=== PATIENT | male | born 1955 | race Caucasian/White ===

== ENCOUNTER 2018-08-13 18:27 | Inpatient (IN) ==
[2018-08-13] MEDS ORDERED: DAPTOmycin 500 MG VIAL IVPB SCH (20:00)
[2018-08-14 06:47] LABS: INR 1.2
[2018-08-14] MEDS: Diltiazem CD (24hr) 180 MG CAPSULE PO SCH (10:14)
[2018-08-14] MEDS: Sennosides/Docusate Sodium TABLET PO SCH (10:15)
--- NOTE | 2018-08-14 12:36 | Internal Med History&Physical ---
Date of Encounter: 08/14/18 Time of Encounter: 11:50 Assessment and Plan (1) MRSA bacteremia Current visit: No Status: Acute Continue IV daptomycin through 08/30/2018. Lactobacillus will be added. (2) Hypokalemia Current visit: No Status: Acute Potassium level was 3.3 yesterday. Supplemental potassium will be started and labs be monitored. (3) Hypomagnesemia Current visit: No Status: Acute Check magnesium level in a.m. (4) HTN (hypertension) Current visit: No Status: Chronic Continue diltiazem, lisinopril, and Lopressor. Qualifiers: Hypertension type: essential hypertension Qualified Code(s): I10 - Essential (primary) hypertension (5) Paroxysmal A-fib Current visit: No Status: Chronic Continue metoprolol, diltiazem, and Coumadin. (6) SHRUTI (acute kidney injury) Current visit: No Status: Acute Improving. Monitor renal indices. (7) Anemia Current visit: No Status: Acute Anemia testing 08/02/2018 showed iron 28, transferrin saturation 17%, transferrin 119, ferritin 1381, B12 736, and folate > 22.3. Continue to monitor CBC. Qualifiers: Anemia type: iron deficiency Iron deficiency anemia type: unspecified iron deficiency Qualified Code(s): D50.9 - Iron deficiency anemia, unspecified (8) Generalized weakness Current visit: No Status: Chronic PT and OT evaluations will be done. Internal Medicine - H&P: HPI Chief complaint: MRSA infection Admitted From: Hospital to Hospital Transfer Plans for Post Hospital Care: Home History of present illness: Mr. Gerber is a 62 year old male who was transferred to [facility] swing bed after [facility] stay July 14 to August 13 to receive IV antibiotics through 08/30/2018. He had T10-L2 hardware placed at [facility] in May for L1 burst fracture following a fall at home. He was hospitalized at [facility] July 04- with cirrhosis, encephalopathy, and atrial fibrillation. He was readmitted July 14 with mental status changes. He was found to have MRSA in his surgical wound and urine. Hardware was removed. He required reintubation for 3 days after hardware removal surgery. He developed acute renal failure requiring several hemodialysis treatments. Creatinine had decreased to 2.08 by day of discharge to swing bed. (Creatinine was 0.57 on 07/03/2018.) He was discharged to swing bed for IV antibiotic treatment and therapy rehabilitation prior to returning home. Past Med Surg Social Fam HX - Past Medical History Medical history: hypertension Psychiatric history: no psych history - Past Surgical History Surgical History: non-contributory Additional surgical history: Back Surgery in 1998, 2018 - Social History Smoking Status: Never smoker Smokeless Tobacco Status: No Alcohol use: heavy Drug use: none - Family History Mother Hx Family Cardiac Disorders: Yes Brother Adopted: [place]: Sergio Gerber Age: 66 Family Member Ethnicity: Non- Living Status: Still Living Hx Family Cardiac Disorders: No Hx Family Respiratory Disorders: Yes (Asthma) Hx Family Cancer: No Hx Family GI Disorders: No Hx Family Genitourinary Disorders: No Hx Family Endocrine Disorder: No Hx Family Musculoskeletal Disorders: No Hx Family Neuromuscular Disorders: No Hx Family Neurologic Disorders: No Hx Family HEENT Disorders: No Hx Family Autoimmune Disorders: No Hx Family Reproductive Disorders: No Hx Family Psychosocial Disorders: No Hx Family Medical Disorders: No Internal Medicine - H&P: Meds Cyclobenzaprine [Flexeril] 10 mg PO TID PRN 07/06/18 [History] Ergocalciferol (VITAMIN D2) [Drisdol (50,000 Unit)] 50,000 unit PO MO 07/06/18 [History] Lisinopril [Zestril] 5 mg PO DAILY 07/06/18 [History] Sennosides/Docusate Sodium [Docusate Sodium-Senna Tablet] 1 each PO DAILY 07/06/18 [History] Sodium Chloride [Sodium Chloride Tab] 1 gm PO TIDWM 07/06/18 [History] Oxycodone HCl [Roxybond] 5 mg PO Q6H PRN 07/14/18 [History] DAPTOmycin [Daptomycin] 500 mg IV Q24H #18 vial 08/13/18 [Rx] Diltiazem CD (24hr) [Cardizem CD] 360 mg PO DAILY cap.er.24h 08/13/18 [Rx] Metoprolol [Lopressor] 75 mg PO BID tablet 08/13/18 [Rx] Warfarin perPT [Coumadin perPT] 1 each PO DAILY@1800 PRN each 08/13/18 [Rx] Allergy/AdvReac Type Severity Reaction Status Date / Time No Known Allergies Allergy Verified 07/04/18 09:37 All Systems PM: A 10-system review of systems was performed and is negative for pertinent findings except as documented above in the HPI. Review of systems: Gen.: His weight has fluctuated significantly in the past few weeks but is minimally changed from one year ago Cardiovascular: He has history of hypertension. He has been diagnosed recently with atrial fibrillation and is now on warfarin. He denies MA heart failure DVT or pulmonary embolus. Echocardiogram 07/05/2018 showed LVEF of 60-65%. There was indeterminate diastolic function assessment due to atrial fibrillation. The interventricular septum and posterior wall thickness measurements were 1.00 and 1.30 cm respectively. There was slight LAE at 4.10 cm. There was mild mitral and tricuspid regurgitation seen. Estimated RVSP was 26 mmHg. Respiratory: He is a lifelong nonsmoker and denies chronic lung disease GI: He has been diagnosed with cirrhosis presumed secondary to alcohol use. Reports his last drink was several weeks ago prior to coming to the hospital. He denies other disorders of his liver gallbladder or exocrine pancreas : He denies hematuria dysuria or kidney stones Neurologic: He denies large distribution strokes or seizures. Endocrine: He denies diabetes thyroid disease or hyperlipidemia Hematology/oncology: He was unaware he had anemia for the last month. He denies internal malignancies or blood disorders Psychiatric: He denies anxiety depression or other mental health issues [place] skeletal: He had surgery for HNP 1998. He had recent L1 burst fracture with hardware placement followed by hardware removal as per history of present illness. He had fracture of his left fifth finger as a teenager playing basketball with resultant deformity on healing. He denies gout or other bone joint or muscle disorders. - Constitutional Vitals: Temp Pulse Resp BP Pulse Ox 97.5 F L 100 18 165/83 98 08/14/18 06:46 08/14/18 06:46 08/14/18 06:46 08/14/18 06:46 08/14/18 06:46 Exam: Gen.: He is a well-developed well-nourished male lying in bed who appears in no acute distress. He denies pain or dyspnea HEENT: Head is atraumatic and normal cephalic. Eyes: EOMI. There is no scleral icterus. Mouth: Mucosa is moist. Neck: Supple and nontender. There is no thyromegaly or adenopathy noted. Heart: Irregularly irregular without murmurs or gallops. Lungs: No wheezes or crackles are heard. Abdomen: Soft and nontender. No masses or guarding are noted. Extremities: He has deformity of his left fifth finger. There is no cyanosis edema or clubbing noted. Dorsalis pedis and posterior tibial pulses are trace to 1+ palpable bilaterally. Neurologic: Mental status: He is talkative and a good historian. Cranial nerves: Smile is symmetric. Forehead wrinkles bilaterally. Tongue protrudes midline. EOMI. Motor: There is no pronator drift. Cerebellar: Finger to nose is intact bilaterally. Skin: He has dressing over his midline spine from sacrum to upper thoracic area which I did not remove. There is no visible drainage on the dressings. Skin is warm and dry otherwise.
[2018-08-14] MEDS: DAPTOmycin 500 MG in 0.9 % Sodium Chloride 100 ML IVPB SCH (13:44)
[2018-08-14] MEDS ORDERED: Warfarin perPT PO PRN (18:00)
[2018-08-14] MEDS ORDERED: *HR* Warfarin 5 MG TABLET PO SCH (18:00)
[2018-08-14] MEDS: Lactobacillus 1 EACH CAP.SPRINK PO SCH (20:43)
[2018-08-14] MEDS: *HR* OxyCODONE Immed Rel 5 MG TABLET PO PRN (20:43)
[2018-08-15 06:20] LABS: Basophils # 0.1 K/mcL (0.0-0.2); Basophils % 0.8 %; Eosinophils # 0.3 K/mcL (0.0-0.6); Eosinophils % 3.4 %; Hematocrit 25.9 % (37.5-50.1); Hemoglobin 8.6 g/dL (12.9-16.9); Immature Granulocytes % 0.4 % (0-4); Lymphocytes % 13.9 %; Mean Corpuscular HGB Conc 33.2 g/dL (31.6-35.5); Mean Corpuscular Hemoglobin 30.3 pg (28.0-33.3); Mean Corpuscular Volume 91.2 fL (83.0-100.0); Mean Platelet Volume 10.1 fL (9.4-12.4); Monocytes # 0.8 K/mcL (0.0-1.3); Monocytes % 11.3 %; Neutrophils # 5.1 K/mcL (1.6-8.9); Platelet Count 396 K/mcL (140-400); Red Blood Count 2.84 M/mcL (4.19-5.50); Red Cell Distribution Width 13.9 % (11.5-14.5); Segmented Neutrophils % 70.2 %
[2018-08-15 06:34] LABS: INR 1.2; Prothrombin Time 13.1 Seconds (9.4-12.1)
[2018-08-15 06:42] LABS: Calcium 7.7 mg/dL (8.6-10.3); Magnesium 1.2 mg/dL (1.6-2.6); Potassium 3.3 mEq/L (3.5-5.1)
[2018-08-15] MEDS: Diltiazem CD (24hr) 180 MG CAPSULE PO SCH (08:56)
[2018-08-15] MEDS: Lactobacillus 1 EACH CAP.SPRINK PO SCH ×2 (08:58→20:28)
[2018-08-15] MEDS: Sennosides/Docusate Sodium TABLET PO SCH (08:58)
[2018-08-15] MEDS: DAPTOmycin 500 MG in 0.9 % Sodium Chloride 100 ML IVPB SCH (10:54)
[2018-08-15] MEDS: *HR* OxyCODONE Immed Rel 5 MG TABLET PO PRN (15:08)
--- NOTE | 2018-08-15 16:26 | Internal Med Progress Note ---
Date of Encounter: 08/15/18 Time of Encounter: 16:18 - Assessment and plan (1) MRSA bacteremia Current Visit: No Status: Acute Assessment and plan: August 15. Continue IV daptomycin with lactobacillus through 08/30/2018. (2) Hypokalemia Current Visit: No Status: Acute Assessment and plan: August 15. Potassium level still low at 3.3. Increase dose to 10 mEq twice a day. (3) Hypomagnesemia Current Visit: No Status: Acute Assessment and plan: August 18. Magnesium level low at 1.2. Start magnesium oxide 400 mg twice a day. (4) HTN (hypertension) Current Visit: No Status: Chronic Assessment and plan: August 15. Continue diltiazem, lisinopril, and Lopressor. Qualifiers: Hypertension type: essential hypertension Qualified Code(s): I10 - Essential (primary) hypertension (5) Paroxysmal A-fib Current Visit: No Status: Chronic Assessment and plan: August 15. Continue metoprolol, diltiazem, and Coumadin. Coumadin dose will be increased due to subtherapeutic level. (6) SHRUTI (acute kidney injury) Current Visit: No Status: Acute Assessment and plan: August 15. Creatinine further decreased at 1.94 with estimated GFR 35. Continue to monitor. (7) Anemia Current Visit: No Status: Acute Assessment and plan: August 15. Continue to monitor CBC. Qualifiers: Anemia type: iron deficiency Iron deficiency anemia type: unspecified iron deficiency Qualified Code(s): D50.9 - Iron deficiency anemia, unspecified (8) Generalized weakness Current Visit: No Status: Chronic Assessment and plan: August 15. Continue PT/OT. - Subjective Interval history: August 15. He has no new complaints. He inquired about coming in as a series patient daily for 2 weeks to receive the antibiotic rather than remaining an inpatient. - Constitutional Vitals: Temp Pulse Resp BP Pulse Ox 98.0 F 91 16 143/85 96 08/15/18 06:17 08/15/18 06:17 08/15/18 06:17 08/15/18 06:17 08/15/18 06:17 Exam: He is resting comfortably in bed and appears in no acute distress. His affect is bright and cheerful. I reviewed his medications and lab results. Internal Medicine: Result - Labs CBC & Chem 7: 08/15/18 05:57 08/15/18 05:57 Labs: Short CBC 08/15/18 Range/Units 05:57 WBC 7.3 (4.3-11.1) K/mcL Hgb 8.6 L (12.9-16.9) g/dL Hct 25.9 L (37.5-50.1) % Plt Count 396 (140-400) K/mcL Neutrophils # 5.1 (1.6-8.9) K/mcL BMP 08/15/18 05:57 Sodium 137 Potassium 3.3 L Chloride 103 Carbon Dioxide 25 BUN 14 Creatinine 1.94 H Glucose 94 Calcium 7.7 L - ABG Interpretation ABG results: PT/INR, D-dimer PT 13.1 Seconds (9.4-12.1) H 08/15/18 05:57 Consult Discharge Plan - Plan Referrals: Funmi Cullen, BUSINESS SYSTEMS ARCHITECT [Primary Care Provider] - 1 week
[2018-08-15] MEDS: *HR* Warfarin 5 MG TABLET PO SCH (17:32)
[2018-08-15] MEDS: Magnesium Oxide 400 MG TABLET PO SCH (20:29)
[2018-08-16 06:39] LABS: INR 1.2; Prothrombin Time 13.3 Seconds (9.4-12.1)
[2018-08-16 06:58] VITALS: BP 160/85
[2018-08-16] MEDS: Lactobacillus 1 EACH CAP.SPRINK PO SCH (09:26)
[2018-08-16] MEDS: Sennosides/Docusate Sodium TABLET PO SCH (09:26)
[2018-08-16] MEDS: Magnesium Oxide 400 MG TABLET PO SCH (09:27)
[2018-08-16] MEDS: Diltiazem CD (24hr) 180 MG CAPSULE PO SCH (09:27)
[2018-08-16] MEDS: DAPTOmycin 500 MG in 0.9 % Sodium Chloride 100 ML IVPB SCH (12:30)
[2018-08-16] MEDS: *HR* Warfarin 5 MG TABLET PO SCH (17:26)
--- NOTE | 2018-08-16 17:27 | Discharge Summary ---
Orders not resulted at time of discharge: Pending orders 08/19/18 04:00 BUN [Blood Urea Nitrogen (BUN)] AM 0400 CBC [Complete Blood Count] [HEME] AM 0400 CK [Creatine Kinase] Routine CRP [C-Reactive Protein] AM 0400 Creatinine AM 0400 Erythrocyte Sedimentation Rate [HEME] AM 0400 08/20/18 04:00 PT/INR [Prothrombin Time INR] [COAG] Routine Date of Encounter: 08/16/18 Time of Encounter: 17:10 - Discharge Diagnosis (1) MRSA bacteremia Priority: Primary Status: Acute (2) Hypokalemia Priority: Secondary Status: Acute (3) Hypomagnesemia Priority: Secondary Status: Acute (4) HTN (hypertension) Priority: Secondary Status: Chronic Qualifiers: Hypertension type: essential hypertension Qualified Code(s): I10 - Essential (primary) hypertension (5) Paroxysmal A-fib Priority: Secondary Status: Chronic (6) SHRUTI (acute kidney injury) Priority: Secondary Status: Acute (7) Anemia Priority: Secondary Status: Acute Qualifiers: Anemia type: iron deficiency Iron deficiency anemia type: unspecified iron deficiency Qualified Code(s): D50.9 - Iron deficiency anemia, unspecified (8) Generalized weakness Priority: Secondary Status: Chronic Hospital course: Mr. Gerber is a 62 year old male who was transferred to [facility] swing bed after [facility] stay July 14 to August 13 to receive IV antibiotics through 08/30/2018. He had T10-L2 hardware placed at [facility] in May for L1 burst fracture following a fall at home. He was hospitalized at [facility] July 04- with cirrhosis, encephalopathy, and atrial fibrillation. He was readmitted July 14 with mental status changes. He was found to have MRSA in his surgical wound and urine. Hardware was removed. He required reintubation for 3 days after hardware removal surgery. He developed acute renal failure requiring several hemodialysis treatments. Creatinine had decreased to 2.08 by day of discharge to swing bed. (Creatinine was 0.57 on 07/03/2018.) He was discharged to swing bed for IV antibiotic treatment and therapy rehabilitation prior to returning home. Initial orders were written by the discharging physicians at [facility]. I saw him on August 14 and performed a swing bed history and physical. He continued IV daptomycin and lactobacillus. He inquired about completing the course of IV antibiotic as an outpatient series patient. Social service was able to arrange this. He will have surgical site dressing changes during his time at the hospital. Additional lab work showed creatinine decreased to 1.94 on August 15. His PCP can continue to monitor this. Magnesium level returned low at 1.2. He was started on magnesium oxide with prescription given for one week at discharge. His PCP can monitor and prescribe additional medication if needed. Supplemental potassium was given for hypokalemia. This will be continued discharge and his PCP can monitor. He was given Coumadin 7.5 mg daily. His PCP can monitor INR and titrate dose as needed. He had PT and OT intervention during his swing bed stay but this will not be continued at discharge. Blood pressure remained satisfactory on diltiazem, lisinopril, and higher dose Lopressor. These will be continued at discharge. He will follow with his PCP within 1 week and with his spine surgeon as directed. - Time Spent with Patient Total time spent providing and/or coordinating discharge services: - Discharge Medications Prescriptions: New Warfarin [Coumadin] 7.5 mg PO DAILY@1800 #15 tablet Lactobacillus [Culturelle] 1 each PO BID #28 cap.sprink Magnesium Oxide [Mag-Ox] 400 mg PO BID #14 tablet Metoprolol Succinate 200 mg PO DAILY #30 tab.er.24h Potassium Chloride 10 meq PO BID #14 tab.er.prt Continued Sennosides/Docusate Sodium [Docusate Sodium-Senna Tablet] 1 each PO DAILY Lisinopril [Zestril] 5 mg PO DAILY Ergocalciferol (VITAMIN D2) [Drisdol (50,000 Unit)] 50,000 unit PO MO Cyclobenzaprine [Flexeril] 10 mg PO TID PRN PRN Reason: Muscle Spasm Oxycodone HCl [Roxybond] 5 mg PO Q6H PRN PRN Reason: Pain DAPTOmycin [Daptomycin] 500 mg IV Q24H #18 vial Diltiazem CD (24hr) [Cardizem CD] 360 mg PO DAILY #30 cap.er.24h Changed Sodium Chloride [Sodium Chloride Tab] 1 gm PO BIDWM #0 Discontinued Warfarin perPT [Coumadin perPT] 1 each PO DAILY@1800 PRN each PRN Reason: See Comments Metoprolol [Lopressor] 75 mg PO BID tablet Home Medications: Cyclobenzaprine [Flexeril] 10 mg PO TID PRN 04/06/19 [History] Ergocalciferol (VITAMIN D2) [Drisdol (50,000 Unit)] 50,000 unit PO MO 07/06/18 [History] Lisinopril [Zestril] 5 mg PO DAILY 07/06/18 [History] Sennosides/Docusate Sodium [Docusate Sodium-Senna Tablet] 1 each PO DAILY 07/06/18 [History] Oxycodone HCl [Roxybond] 5 mg PO Q6H PRN 07/14/18 [History] DAPTOmycin [Daptomycin] 500 mg IV Q24H #18 vial 08/13/18 [Rx] Diltiazem CD (24hr) [Cardizem CD] 360 mg PO DAILY #30 cap.er.24h 08/16/18 [Rx] Lactobacillus [Culturelle] 1 each PO BID #28 cap.sprink 08/16/18 [Rx] Magnesium Oxide [Mag-Ox] 400 mg PO BID #14 tablet 08/16/18 [Rx] Metoprolol Succinate 200 mg PO DAILY #30 tab.er.24h 08/16/18 [Rx] Potassium Chloride 10 meq PO BID #14 tab.er.prt 08/16/18 [Rx] Sodium Chloride [Sodium Chloride Tab] 1 gm PO BIDWM #0 08/16/18 [Rx] Warfarin [Coumadin] 7.5 mg PO DAILY@1800 #15 tablet 08/16/18 [Rx] Allergies/Adverse Reactions: Allergy/AdvReac Type Severity Reaction Status Date / Time No Known Allergies Allergy Verified 07/04/18 09:37 Date of admission: 08/13/18 18:47 Primary care physician: Funmi Cullen CNP Consults: 08/13/18 19:38 Consult to Occupational Therapy [CONS] Routine Comment: Evaluate, develop and implement POC Reason for Consult: Evaluate, develop and implement POC Does patient have active BEDREST order?: No Is patient medically & hemodynamically stable?: Yes Patient assessed for mobility or mobilized this visit?: No Consult to Physical Therapy [CONS] Routine Comment: Evaluate, develop and implement POC Reason for Consult: Evaluate, develop and implement POC Does patient have active BEDREST order?: No Is patient medically & hemodynamically stable?: Yes Patient assessed for mobility or mobilized this visit?: No 08/13/18 19:49 Consult to Housekeeping Attendant [CONS] Routine Reason for SW Consult: financial , possible need for home healh - Constitutional Vitals: Temp Pulse Resp BP Pulse Ox 98.8 F 95 16 160/85 97 08/16/18 06:53 08/16/18 06:53 08/16/18 06:53 08/16/18 06:53 08/16/18 06:53 - Patient Status Disposition: Home, Self-Care - Discharge Instructions Follow Up With: Funmi Cullen, DIRECTOR CAREER [Primary Care Provider] - 1 week - Diet and Activity Activity: as per physical therapy Diet: advance to your usual diet
[2018-08-19] MEDS ORDERED: Cholecalciferol (D-3) 1,000 UNIT TABLET PO SCH (19:42)
== END 2018-08-16 18:17 | disposition home or self-care (01) | DRG 872 ==
LOC: INPPIK 18:47
PROVIDERS: ADMIT Internal Medicine; ATTEND Internal Medicine